=== PATIENT | female | born 1985 | race Caucasian/White ===

== ENCOUNTER 2021-02-22 08:48 | Emergency (ER) | payer OTHER ==
[2021-02-22 09:14] VITALS: RESP 18
--- NOTE | 2021-02-22 09:53 | XR ---
EXAMINATION TYPE: XR ankle complete RT, XR foot complete RT DATE OF EXAM: 02/22/2021 CLINICAL HISTORY: Pain after injury. TECHNIQUE: Frontal, lateral and oblique images of the right ankle and foot are obtained. COMPARISON: None. FINDINGS: There is no acute fracture/dislocation evident in the right ankle. The ankle mortise appe ars within normal limits. The overlying soft tissue appears unremarkable. There is acute slightly displaced transverse intra-articular fracture base of fifth metatarsal. Join t spaces in the right foot are preserved. Overlying soft tissue is unremarkable. IMPRESSION: There is acute slightly displaced intra-articular transverse fracture base of fifth meta tarsal. (Hernandez type fracture)
--- NOTE | 2021-02-22 09:55 | XR ---
EXAMINATION TYPE: XR chest 2V DATE OF EXAM: 02/22/2021 COMPARISON: NONE HISTORY: Pain, trauma TECHNIQUE: Frontal and lateral views of the chest are obtained. FINDINGS: There is no focal air space opacity, pleural effusion, or pneumothorax seen. The cardiac silhouette size is within normal limits. There are overlying artifacts. The osseous structures are i ntact. IMPRESSION: No acute cardiopulmonary process.
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
[2021-02-22] MEDS ORDERED: ACETAMINOPHEN TAB 325 MG TAB PO STA (12:20)
[2021-02-22 13:17] VITALS: BP 113/74; PULSE 88; TEMP 100
== END 2021-02-22 13:16 | disposition home or self-care (01) ==
LOC: EC 08:48
DX: S92.351A Displaced fracture of fifth metatarsal bone, right foot, initial encounter for closed fracture (principal); M94.0 Chondrocostal junction syndrome [Tietze]; B34.9 Viral infection, unspecified; F17.200 Nicotine dependence, unspecified, uncomplicated; F12.90 Cannabis use, unspecified, uncomplicated; W01.0XXA Fall on same level from slipping, tripping and stumbling without subsequent striking against object, initial encounter
CPT/HCPCS: 29515; 71046; 87635; 93005; 99285